=== PATIENT | male | born 1965 | race Caucasian/White ===

== ENCOUNTER 2018-01-07 08:31 | Outpatient (CLI) | payer BC ==
--- NOTE | 2018-01-07 09:30 | CT ---
CT SINUSES: INDICATIONS: Chronic sinusitis. TECHNIQUE: Multiple axial tomograms obtained through the sinuses with multiplanar reconstruction. FINDINGS: The frontal air cells are well aerated. Mild mucosal edema in the frontal recesses. The ethmoids ar e well aerated. There is opacification of a posterior left ethmoid air cell. The maxillary sinuses are well aerated and free of significant mucosal edema. The infundibula are pa tent bilaterally. Small shar bullosa involving the left middle turbinate. Mild septal deviation t o the right. The sphenoid air cells are clear with no mucosal edema. IMPRESSION: 1. Opacification of a posterior left ethmoid air cell. 2. Mild mucosal edema in the frontal recesses. 3. Otherwise no significant paranasal sinus mucosal disease. 4. Mild septal deviation to the right and small left shar bullosa. POS: [facility]
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
== END 2018-01-07 08:32 | disposition home or self-care (01) ==
LOC: SCSCT 08:31
PROVIDERS: ATTEND Family Medicine
DX: J32.9 Chronic sinusitis, unspecified (principal); M51.9 Unspecified thoracic, thoracolumbar and lumbosacral intervertebral disc disorder; M54.9 Dorsalgia, unspecified; J34.89 Other specified disorders of nose and nasal sinuses; J34.2 Deviated nasal septum; M47.896 Other spondylosis, lumbar region; M43.17 Spondylolisthesis, lumbosacral region; N28.9 Disorder of kidney and ureter, unspecified
CPT/HCPCS: 72148

== ENCOUNTER 2018-01-14 14:42 | Outpatient (CLI) | payer BC ==
--- NOTE | 2018-01-14 16:14 | ULT ---
BILATERAL RENAL ULTRASOUND: Date: 01/14/18 HISTORY: Renal cysts. COMPARISON: None. FINDINGS: Right kidney measures 10.3 x 5.2 x 4.4 cm. Left kidney measures 10.2 x 4.8 x 4.2 cm. There are comple x left renal cysts measuring up to 3.5 cm. Urinary bladder is unremarkable. IMPRESSION: Complex left renal cysts. Follow-up ultrasound in 6 months recommended. POS: [facility]
--- NOTE | 2018-01-14 16:45 | MRI ---
MRI OF BRAIN WITH AND WITHOUT CONTRAST MRI IAC WITH AND WITHOUT CONTRAST 01/14/18 INDICATION: Tinnitus. FINDINGS: Ventricular system is normal in size. Septum pellucidum and third ventricle are midline. There are no significant signal abnormalities of the brain parenchyma. No evidence of acute territorial infarctio n. There is no pathologic intra-axial enhancement. Evaluation of each CP angle cistern reveals no pat hologic enhancement or mass effect. IMPRESSION: 1. No acute intracranial abnormalities. 2. No mass effect or pathologic enhancement of either CP angle cistern. POS: [facility]
== END 2018-01-14 14:43 | disposition home or self-care (01) ==
LOC: SCSMRI 14:42
PROVIDERS: ATTEND Family Medicine
DX: N28.89 Other specified disorders of kidney and ureter (principal); H93.A9 Pulsatile tinnitus, unspecified ear; N28.1 Cyst of kidney, acquired
CPT/HCPCS: 70553; 76770

== ENCOUNTER 2018-12-21 14:50 | Outpatient (CLI) | payer OTHER ==
--- NOTE | 2018-12-21 15:26 | ULT ---
RENAL ULTRASOUND: 12/21/2018 HISTORY: Re-evaluate left renal cyst. COMPARISON: 01/14/2018 TECHNIQUE: Multiplanar taylor-scale sonographic imaging of the kidneys and urinary bladder obtained. FINDINGS: The right kidney measures 11 x 5.5 x 5.2 cm and the left kidney measures 11 x 7.4 x 5.4 cm. No discrete renal mass, hydronephrosis or stone noted on the right. As seen on the prior examination, there is a nonspecific echogenic focus associated with the wall of the urinary bladder, posteriorly and just to the left of midline, measuring 10 x 8 x 7 mm. There is a tiny cyst in the upper pole of the left kidney, measuring 1.1 x 1.2 x 0.9 cm. There is an additional cyst in the mid pole of the left kidney, measuring 3.4 x 2.5 x 2.9 cm with a punctate ale cent echogenic focus and a probable thin internal septation. When compared to the prior examination, the mildly complex left renal cyst does not appear significantly changed. IMPRESSION: 1. Stable renal ultrasound, as detailed above. 2. Echogenic focus associated with the urinary bladder wall may represent a stone. Recommend dedicate d CT examination. POS: [facility]
== END 2018-12-21 14:51 | disposition home or self-care (01) ==
LOC: SCSULT 14:50
PROVIDERS: ATTEND Family Medicine
DX: N28.1 Cyst of kidney, acquired (principal); R93.49 Abnormal radiologic findings on diagnostic imaging of other urinary organs
CPT/HCPCS: 76770

== ENCOUNTER 2019-04-20 15:20 | Outpatient (CLI) | payer OTHER ==
--- NOTE | 2019-04-20 15:42 | RAD ---
Lumbar spine 2 views: 04/20/2019 COMPARISON: Lumbar spine MRI 01/07/2018 HISTORY: Lumbar spondylolisthesis FINDINGS: Anterior wedge compression fracture of L1 noted with approximately 30% loss of vertebral link dy height anteriorly, stable. There is disc space narrowing at L3-4, L4-5, and L5-S1. There is degenerative endplate change with an terior osteophyte formation at L4-5 and L5-S1. Anterolisthesis of L5 on S1 measures approximately 1.1 cm. These findings may be related to bilateral L5 pars defects, which could be better evaluated for with CT. The degree of anterolisthesis of L5 on S1 appears similar when compared to prior MRI. IMPRESSION: Chronic findings as detailed above.
== END 2019-04-20 15:21 | disposition home or self-care (01) ==
LOC: TBSIIMAG 15:20
PROVIDERS: ATTEND Neurological Surgery
DX: M43.16 Spondylolisthesis, lumbar region (principal)
CPT/HCPCS: 72100

== ENCOUNTER 2020-02-09 14:44 | Outpatient (CLI) | payer OTHER ==
--- NOTE | 2020-02-09 15:27 | RAD ---
LUMBAR SPINE TWO VIEWS: 02/09/20 HISTORY: Dorsalgia, unspecific. COMPARISON: 04/20/19. FINDINGS: Anterior wedge compression fracture of L1 with about 30% loss of vertebral body height anteriorly is stable. Degenerative changes in the lower lumbar spine are again seen. Mild anterolisthesis of L5 on S1 is stable. IMPRESSION: Stable exam. POS: [facility]
== END 2020-02-09 14:45 | disposition home or self-care (01) ==
LOC: BICRAD 14:44
PROVIDERS: ATTEND Family Medicine
DX: M54.5 Low back pain (principal)
CPT/HCPCS: 72100